=== PATIENT | female | born 1980 | race African-American/Black ===

== ENCOUNTER 2021-01-21 11:00 | Inpatient (IN) | payer OTHER ==
[2021-01-21] MEDS ORDERED: HYDROcodone/Acetaminophen 5/325 mg Tablet ONE (12:38)
[2021-01-21 13:00] LABS: #Eosinphils 0.1 thou/uL (0.0-0.7); #Lymphocytes 1.4 thou/uL (1.20-3.40); #Monocytes 0.3 thou/uL (0.11-0.59); #Neutrophils 3.4 thou/uL (1.40-6.50); %Eosinophils 1.8 % (0.0-10.0); %Lymphocytes 27.3 % (21.0-51.0); %Monocytes 5.7 % (0.0-10.0); %Neutrophils 65.3 % (42.0-75.0); Hemoglobin 12.9 g/dL (12.0-16.0); Mean Corpuscular HGB CONC 33.9 g/dL (32.0-36.0); Mean Corpuscular Hemoglobin 31.3 pg (27.0-31.0); Mean Corpuscular Volume 92.4 fL (78.0-98.0); Mean Platelet Volume 8.1 fL (7.4-10.4); Platelet Count 191 thou/uL (130-400); RBC Distribution Width 12.4 % (11.5-14.5); Red Blood Cell (RBC) Count 4.11 mill/uL (4.20-5.40); White Blood Cell (WBC) Count 5.3 thou/uL (4.8-10.8)
[2021-01-21 13:20] LABS: ALT (SGPT) 12 U/L (8-55); AST (SGOT) 12 U/L (5-34); Albumin 3.5 g/dL (3.5-5.0); Alkaline Phosphatase 54 U/L (40-110); Anion Gap 13 mmol/L (10-20); BUN (Urea Nitrogen) 15 mg/dL (7.0-18.7); Bilirubin, Total 0.3 mg/dL (0.2-1.2); Calc. Creatinine Clearance 0 mL/min (70-130); Calcium 9.2 mg/dL (7.8-10.44); Carbon Dioxide 28 mmol/L (22-29); Chloride 104 mmol/L (98-107); Globulin 2.9 g/dL (2.4-3.5); Glucose 164 mg/dL (70-105); Potassium 3.8 mmol/L (3.5-5.1); Protein, Total 6.4 g/dL (6.0-8.3); Sodium 141 mmol/L (136-145)
[2021-01-21] MEDS ORDERED: Vancomycin 1 GM/200 ML BAG ONE (14:19)
[2021-01-21] MEDS ORDERED: Clindamycin/D5W 600 mg/50 ml Premix Bag ONE (14:19)
[2021-01-21] MEDS ORDERED: Ondansetron ODT 4 MG TAB PO PRN (14:24)
[2021-01-21] MEDS ORDERED: Dextrose 5% in Water 1,000 ML IV PRN (16:16)
[2021-01-21] MEDS ORDERED: HumaLOG 300 UNITS/3 ML VIAL SC PRN ×2 (16:16)
[2021-01-21] MEDS ORDERED: Dextrose 50% Abboject 50 ML SYRINGE SLOW IVP PRN (16:16)
[2021-01-21] MEDS ORDERED: Fish Oil 1,000 MG CAP PO SCH (17:00)
[2021-01-21 17:24] VITALS: BMI 50.1
[2021-01-21] MEDS ORDERED: HumaLOG 300 UNITS/3 ML VIAL ONE (17:32)
[2021-01-21] MEDS ORDERED: Cefepime 2 GM VIAL ONE (17:32)
[2021-01-21] MEDS: Cefepime 2 GM in Sodium Chloride 0.9% 100 ML IVPB SCH (17:44)
[2021-01-21] MEDS: Fish Oil 1,000 MG CAP PO SCH (17:45)
[2021-01-21] MEDS: HumaLOG 300 UNITS/3 ML VIAL SC SCH (17:46)
[2021-01-21] MEDS: metFORMIN 500 MG TAB PO SCH (18:18)
[2021-01-21 18:43] LABS: SARS-CoV-2 NAA Rapid Test Not Detected (NotDetected)
[2021-01-21] MEDS ORDERED: Vancomycin 1 GM in Premix Bag 1 BAG IVPB SCH (21:00)
[2021-01-21] MEDS: Gabapentin 300 MG CAP PO SCH (21:37)
[2021-01-21] MEDS: Atorvastatin Calcium 40 MG TAB PO SCH (21:39)
[2021-01-21] MEDS: Lantus 1000 UNITS/10 ML VIAL SC SCH (21:40)
[2021-01-22] MEDS: Cefepime 2 GM in Sodium Chloride 0.9% 100 ML IVPB SCH ×2 (05:14→15:43)
[2021-01-22 07:25] LABS: #Eosinphils 0.1 thou/uL (0.0-0.7); #Lymphocytes 1.3 thou/uL (1.20-3.40); #Monocytes 0.4 thou/uL (0.11-0.59); #Neutrophils 4.1 thou/uL (1.40-6.50); %Basophils 0.1 % (0.0-1.0); %Eosinophils 2.5 % (0.0-10.0); %Lymphocytes 21.4 % (21.0-51.0); %Monocytes 6.6 % (0.0-10.0); %Neutrophils 69.5 % (42.0-75.0); Hemoglobin 12.5 g/dL (12.0-16.0); Mean Corpuscular HGB CONC 32.6 g/dL (32.0-36.0); Mean Corpuscular Hemoglobin 29.7 pg (27.0-31.0); Mean Platelet Volume 8.5 fL (7.4-10.4); Platelet Count 196 thou/uL (130-400); RBC Distribution Width 12.4 % (11.5-14.5)
[2021-01-22 07:38] LABS: Anion Gap 13 mmol/L (10-20); BUN (Urea Nitrogen) 17 mg/dL (7.0-18.7); Calc. Creatinine Clearance 230 mL/min (70-130); Calcium 9.3 mg/dL (7.8-10.44); Carbon Dioxide 24 mmol/L (22-29); Chloride 106 mmol/L (98-107); Glucose 108 mg/dL (70-105); Potassium 3.4 mmol/L (3.5-5.1); Sodium 140 mmol/L (136-145)
[2021-01-22] MEDS: Gabapentin 300 MG CAP PO SCH ×3 (08:13→20:23)
[2021-01-22] MEDS: Ezetimibe 10 MG TAB PO SCH (08:14)
[2021-01-22] MEDS: Fish Oil 1,000 MG CAP PO SCH ×2 (08:14→17:21)
[2021-01-22] MEDS: metFORMIN 500 MG TAB PO SCH ×2 (08:14→17:21)
[2021-01-22] MEDS ORDERED: Enoxaparin Sodium 40 MG/0.4 ML SYRINGE SC SCH (09:00)
[2021-01-22] MEDS: Lantus 1000 UNITS/10 ML VIAL SC SCH ×2 (09:17→20:25)
[2021-01-22] MEDS ORDERED: Potassium Chloride 20 MEQ TAB PO SCH (10:30)
[2021-01-22] MEDS ORDERED: Carvedilol 25 MG TAB PO SCH (10:30)
[2021-01-22] MEDS: HumaLOG 300 UNITS/3 ML VIAL SC SCH ×2 (11:24→16:26)
[2021-01-22] MEDS: cloNIDine 0.1 MG TAB PO SCH ×3 (11:54→20:23)
[2021-01-22] MEDS: Acetaminophen 325 MG TAB PO PRN (20:24)
[2021-01-22] MEDS: Atorvastatin Calcium 40 MG TAB PO SCH (20:24)
[2021-01-22] MEDS: Carvedilol 25 MG TAB PO SCH (20:24)
[2021-01-22 21:50] LABS: Vancomycin, Trough 39.2 ug/mL
[2021-01-23] MEDS: Cefepime 2 GM in Sodium Chloride 0.9% 100 ML IVPB SCH ×2 (04:05→15:53)
[2021-01-23] MEDS: ENTRESTO PO SCH ×4 (06:14→21:15)
[2021-01-23] MEDS: Fish Oil 1,000 MG CAP PO SCH ×2 (08:39→18:21)
[2021-01-23] MEDS: Acetaminophen 325 MG TAB PO PRN (08:39)
[2021-01-23] MEDS: Furosemide 40 MG TAB PO SCH (08:40)
[2021-01-23] MEDS: Gabapentin 300 MG CAP PO SCH ×4 (08:40→21:04)
[2021-01-23] MEDS: metFORMIN 500 MG TAB PO SCH ×2 (08:40→18:21)
[2021-01-23] MEDS: Lantus 1000 UNITS/10 ML VIAL SC SCH ×2 (08:41→21:00)
[2021-01-23] MEDS: cloNIDine 0.1 MG TAB PO SCH ×3 (08:41→21:03)
[2021-01-23] MEDS: Ezetimibe 10 MG TAB PO SCH (08:41)
[2021-01-23] MEDS: Carvedilol 25 MG TAB PO SCH ×2 (08:41→21:04)
[2021-01-23] MEDS ORDERED: hydrALAZINE 10 MG TAB PO SCH (09:00)
[2021-01-23 09:57] LABS: #Eosinphils 0.1 thou/uL (0.0-0.7); #Lymphocytes 1.4 thou/uL (1.20-3.40); #Monocytes 0.3 thou/uL (0.11-0.59); %Basophils 0.4 % (0.0-1.0); %Eosinophils 2.5 % (0.0-10.0); %Monocytes 6.6 % (0.0-10.0); %Neutrophils 61.5 % (42.0-75.0); Hemoglobin 13.5 g/dL (12.0-16.0); Mean Corpuscular HGB CONC 31.2 g/dL (32.0-36.0); Mean Corpuscular Hemoglobin 28.3 pg (27.0-31.0); Mean Corpuscular Volume 90.4 fL (78.0-98.0); Mean Platelet Volume 8.3 fL (7.4-10.4); Platelet Count 191 thou/uL (130-400); RBC Distribution Width 12.4 % (11.5-14.5); Red Blood Cell (RBC) Count 4.79 mill/uL (4.20-5.40); White Blood Cell (WBC) Count 4.8 thou/uL (4.8-10.8)
[2021-01-23 10:12] LABS: Anion Gap 12 mmol/L (10-20); BUN (Urea Nitrogen) 14 mg/dL (7.0-18.7); Calc. Creatinine Clearance 239 mL/min (70-130); Calcium 9.2 mg/dL (7.8-10.44); Carbon Dioxide 23 mmol/L (22-29); Chloride 107 mmol/L (98-107); Glucose 115 mg/dL (70-105); Potassium 3.8 mmol/L (3.5-5.1); Sodium 138 mmol/L (136-145)
[2021-01-23 10:30] LABS: Vancomycin, Random 17.8 ug/mL (See Comment)
[2021-01-23] MEDS: Vancomycin 1 GM in Premix Bag 1 BAG IVPB SCH ×2 (11:49→21:19)
[2021-01-23] MEDS ORDERED: Magnevist 469MG/ML 20 ML VIAL ONE (12:25)
[2021-01-23] MEDS ORDERED: Morphine 4 MG/ML VIAL SLOW IVP SCH (12:30)
[2021-01-23] MEDS: HumaLOG 300 UNITS/3 ML VIAL SC SCH ×2 (12:43→18:12)
[2021-01-23] MEDS ORDERED: Enoxaparin Sodium 40 MG/0.4 ML SYRINGE SC SCH (15:00)
[2021-01-23] MEDS ORDERED: Enoxaparin Sodium 60 MG/0.6 ML SYRINGE SC SCH (15:15)
[2021-01-23] MEDS ORDERED: hydrALAZINE 20 MG/ML VIAL SLOW IVP PRN (17:49)
[2021-01-23] MEDS: hydrALAZINE 10 MG TAB PO SCH (21:02)
[2021-01-23] MEDS: Atorvastatin Calcium 40 MG TAB PO SCH (21:03)
[2021-01-24] MEDS: Cefepime 2 GM in Sodium Chloride 0.9% 100 ML IVPB SCH ×2 (04:23→17:09)
[2021-01-24] MEDS: Vancomycin 1 GM in Premix Bag 1 BAG IVPB SCH ×2 (05:07→13:41)
[2021-01-24 06:36] LABS: #Eosinphils 0.1 thou/uL (0.0-0.7); #Lymphocytes 1.6 thou/uL (1.20-3.40); #Monocytes 0.4 thou/uL (0.11-0.59); #Neutrophils 2.9 thou/uL (1.40-6.50); %Basophils 0.7 % (0.0-1.0); %Eosinophils 1.9 % (0.0-10.0); %Lymphocytes 32.7 % (21.0-51.0); %Neutrophils 57.8 % (42.0-75.0); Hemoglobin 12.1 g/dL (12.0-16.0); Mean Corpuscular HGB CONC 33.6 g/dL (32.0-36.0); Mean Corpuscular Hemoglobin 30.4 pg (27.0-31.0); Mean Corpuscular Volume 90.4 fL (78.0-98.0); Mean Platelet Volume 7.9 fL (7.4-10.4); Platelet Count 182 thou/uL (130-400); RBC Distribution Width 12.4 % (11.5-14.5); Red Blood Cell (RBC) Count 3.97 mill/uL (4.20-5.40)
[2021-01-24 07:03] LABS: Anion Gap 11 mmol/L (10-20); BUN (Urea Nitrogen) 14 mg/dL (7.0-18.7); Calc. Creatinine Clearance 239 mL/min (70-130); Calcium 8.6 mg/dL (7.8-10.44); Carbon Dioxide 23 mmol/L (22-29); Chloride 107 mmol/L (98-107); Glucose 118 mg/dL (70-105); Potassium 3.4 mmol/L (3.5-5.1); Sodium 138 mmol/L (136-145)
[2021-01-24] MEDS ORDERED: Enoxaparin Sodium 40 MG/0.4 ML SYRINGE SC SCH (09:00)
[2021-01-24] MEDS: Gabapentin 300 MG CAP PO SCH ×3 (09:38→20:30)
[2021-01-24] MEDS: Carvedilol 25 MG TAB PO SCH ×2 (09:39→20:30)
[2021-01-24] MEDS: metFORMIN 500 MG TAB PO SCH ×2 (09:39→17:16)
[2021-01-24] MEDS: Ezetimibe 10 MG TAB PO SCH (09:39)
[2021-01-24] MEDS: Enoxaparin Sodium 60 MG/0.6 ML SYRINGE SC SCH (09:40)
[2021-01-24] MEDS: Furosemide 40 MG TAB PO SCH (09:40)
[2021-01-24] MEDS: Fish Oil 1,000 MG CAP PO SCH ×2 (09:40→17:15)
[2021-01-24] MEDS: cloNIDine 0.1 MG TAB PO SCH ×3 (09:40→20:30)
[2021-01-24] MEDS: hydrALAZINE 10 MG TAB PO SCH (09:42)
[2021-01-24] MEDS: ENTRESTO PO SCH ×2 (09:43→20:35)
[2021-01-24] MEDS: Lantus 1000 UNITS/10 ML VIAL SC SCH ×2 (09:46→20:36)
[2021-01-24] MEDS: Potassium Chloride 20 MEQ TAB PO SCH (11:26)
[2021-01-24 12:40] LABS: Vancomycin, Trough 19.9 ug/mL
[2021-01-24] MEDS: HumaLOG 300 UNITS/3 ML VIAL SC SCH ×2 (13:38→17:16)
[2021-01-24] MEDS: Atorvastatin Calcium 40 MG TAB PO SCH (20:29)
[2021-01-24] MEDS ORDERED: hydrALAZINE 25 MG TAB PO SCH (21:00)
[2021-01-25] MEDS: Acetaminophen 325 MG TAB PO PRN (03:47)
[2021-01-25] MEDS ORDERED: Ketorolac Tromethamine 30 MG/ML VIAL IVP SCH (05:30)
[2021-01-25] MEDS ORDERED: hydrALAZINE 25 MG TAB PO SCH ×3 (06:15→21:00)
[2021-01-25] MEDS ORDERED: Acetaminophen 325 MG TAB PO SCH (06:15)
[2021-01-25 06:38] LABS: #Eosinphils 0.1 thou/uL (0.0-0.7); #Lymphocytes 1.9 thou/uL (1.20-3.40); #Monocytes 0.3 thou/uL (0.11-0.59); #Neutrophils 2.7 thou/uL (1.40-6.50); %Basophils 0.7 % (0.0-1.0); %Eosinophils 1.7 % (0.0-10.0); %Monocytes 6.1 % (0.0-10.0); %Neutrophils 53.4 % (42.0-75.0); Hemoglobin 11.9 g/dL (12.0-16.0); Mean Corpuscular HGB CONC 31.9 g/dL (32.0-36.0); Mean Corpuscular Hemoglobin 28.9 pg (27.0-31.0); Mean Corpuscular Volume 90.5 fL (78.0-98.0); Mean Platelet Volume 8.3 fL (7.4-10.4); Platelet Count 193 thou/uL (130-400); RBC Distribution Width 12.4 % (11.5-14.5); Red Blood Cell (RBC) Count 4.11 mill/uL (4.20-5.40); White Blood Cell (WBC) Count 5.1 thou/uL (4.8-10.8)
[2021-01-25 07:03] LABS: Anion Gap 12 mmol/L (10-20); BUN (Urea Nitrogen) 13 mg/dL (7.0-18.7); Calc. Creatinine Clearance 236 mL/min (70-130); Calcium 9.2 mg/dL (7.8-10.44); Carbon Dioxide 24 mmol/L (22-29); Chloride 107 mmol/L (98-107); Glucose 153 mg/dL (70-105); Potassium 3.7 mmol/L (3.5-5.1); Sodium 139 mmol/L (136-145)
[2021-01-25] MEDS: Acetaminophen 500 MG TAB PO SCH ×3 (07:31→18:06)
[2021-01-25] MEDS: Gabapentin 300 MG CAP PO SCH ×3 (07:43→21:00)
[2021-01-25] MEDS: Fish Oil 1,000 MG CAP PO SCH ×2 (07:44→16:04)
[2021-01-25] MEDS: Enoxaparin Sodium 60 MG/0.6 ML SYRINGE SC SCH (07:44)
[2021-01-25] MEDS: metFORMIN 500 MG TAB PO SCH ×2 (07:44→16:04)
[2021-01-25] MEDS: Furosemide 40 MG TAB PO SCH (07:44)
[2021-01-25] MEDS: Carvedilol 25 MG TAB PO SCH (07:45)
[2021-01-25] MEDS: Amoxicillin/Potassium Clav 875 MG TAB PO SCH ×2 (07:45→21:00)
[2021-01-25] MEDS: Ezetimibe 10 MG TAB PO SCH (07:46)
[2021-01-25] MEDS: cloNIDine 0.1 MG TAB PO SCH ×3 (07:46→21:00)
[2021-01-25] MEDS: ENTRESTO PO SCH ×2 (07:47→21:02)
[2021-01-25] MEDS: Lantus 1000 UNITS/10 ML VIAL SC SCH ×2 (07:56→21:25)
[2021-01-25] MEDS: Potassium Chloride 20 MEQ TAB PO SCH (09:33)
[2021-01-25] MEDS: HumaLOG 300 UNITS/3 ML VIAL SC SCH ×2 (11:10→16:05)
[2021-01-25] MEDS: Atorvastatin Calcium 40 MG TAB PO SCH (21:00)
[2021-01-25] MEDS: hydrALAZINE 25 MG TAB PO SCH (21:01)
[2021-01-26] MEDS: Carvedilol 25 MG TAB PO SCH ×2 (01:22→08:51)
[2021-01-26] MEDS: Acetaminophen 500 MG TAB PO SCH ×3 (01:26→12:01)
[2021-01-26 08:10] LABS: #Eosinphils 0.1 thou/uL (0.0-0.7); #Lymphocytes 1.7 thou/uL (1.20-3.40); #Monocytes 0.3 thou/uL (0.11-0.59); #Neutrophils 2.6 thou/uL (1.40-6.50); %Basophils 0.3 % (0.0-1.0); %Eosinophils 2.1 % (0.0-10.0); %Monocytes 6.3 % (0.0-10.0); %Neutrophils 55.2 % (42.0-75.0); Hemoglobin 12.3 g/dL (12.0-16.0); Mean Corpuscular HGB CONC 31.3 g/dL (32.0-36.0); Mean Corpuscular Hemoglobin 28.5 pg (27.0-31.0); Mean Platelet Volume 8.4 fL (7.4-10.4); Platelet Count 212 thou/uL (130-400); RBC Distribution Width 12.6 % (11.5-14.5); Red Blood Cell (RBC) Count 4.29 mill/uL (4.20-5.40); White Blood Cell (WBC) Count 4.8 thou/uL (4.8-10.8)
[2021-01-26 08:28] LABS: Anion Gap 13 mmol/L (10-20); BUN (Urea Nitrogen) 15 mg/dL (7.0-18.7); Calc. Creatinine Clearance 227 mL/min (70-130); Calcium 9.2 mg/dL (7.8-10.44); Carbon Dioxide 23 mmol/L (22-29); Chloride 107 mmol/L (98-107); Glucose 138 mg/dL (70-105); Potassium 3.9 mmol/L (3.5-5.1); Sodium 139 mmol/L (136-145)
[2021-01-26] MEDS: Enoxaparin Sodium 60 MG/0.6 ML SYRINGE SC SCH (08:50)
[2021-01-26] MEDS: Gabapentin 300 MG CAP PO SCH (08:50)
[2021-01-26] MEDS: Fish Oil 1,000 MG CAP PO SCH (08:50)
[2021-01-26] MEDS: hydrALAZINE 25 MG TAB PO SCH (08:51)
[2021-01-26] MEDS: Furosemide 40 MG TAB PO SCH (08:51)
[2021-01-26] MEDS: metFORMIN 500 MG TAB PO SCH (08:51)
[2021-01-26] MEDS: Amoxicillin/Potassium Clav 875 MG TAB PO SCH (08:51)
[2021-01-26] MEDS: cloNIDine 0.1 MG TAB PO SCH (08:52)
[2021-01-26] MEDS: Ezetimibe 10 MG TAB PO SCH (08:53)
[2021-01-26] MEDS: Lantus 1000 UNITS/10 ML VIAL SC SCH (08:56)
[2021-01-26] MEDS: ENTRESTO PO SCH (08:59)
[2021-01-26] MEDS: Potassium Chloride 20 MEQ TAB PO SCH (10:03)
[2021-01-26 11:59] VITALS: BP 159/87; TEMP 98.2
[2021-01-26] MEDS: HumaLOG 300 UNITS/3 ML VIAL SC SCH (12:03)
== END 2021-01-26 13:52 | disposition home or self-care (01) | DRG 565 ==
LOC: ERS 11:00 → ERHOLD 13:50 → T4-B 18:04
PROVIDERS: ADMIT Family Medicine; ATTEND Family Medicine
DX: T87.43 Infection of amputation stump, right lower extremity (principal); I50.22 Chronic systolic (congestive) heart failure; Z68.43 Body mass index [BMI] 50.0-59.9, adult; M86.171 Other acute osteomyelitis, right ankle and foot; E11.69 Type 2 diabetes mellitus with other specified complication; E11.621 Type 2 diabetes mellitus with foot ulcer; Z20.822 Contact with and (suspected) exposure to COVID-19; I25.10 Atherosclerotic heart disease of native coronary artery without angina pectoris; L97.519 Non-pressure chronic ulcer of other part of right foot with unspecified severity; E78.5 Hyperlipidemia, unspecified; J45.909 Unspecified asthma, uncomplicated; E78.00 Pure hypercholesterolemia, unspecified; I11.0 Hypertensive heart disease with heart failure; G47.33 Obstructive sleep apnea (adult) (pediatric); Y83.8 Other surgical procedures as the cause of abnormal reaction of the patient, or of later complication, without mention of misadventure at the time of the procedure; E66.01 Morbid (severe) obesity due to excess calories; E88.81 Metabolic syndrome and other insulin resistance; I25.5 Ischemic cardiomyopathy; Z95.1 Presence of aortocoronary bypass graft; Z88.1 Allergy status to other antibiotic agents; Z79.84 Long term (current) use of oral hypoglycemic drugs; Z79.899 Other long term (current) drug therapy; Z79.01 Long term (current) use of anticoagulants; Z79.82 Long term (current) use of aspirin; Z79.4 Long term (current) use of insulin; Z99.89 Dependence on other enabling machines and devices
CPT/HCPCS: 36415; 36416; 80048; 80053; 80202; 85025; 85652; 86140; 87070; 87077; 87186; 87205; 93880; 96365; 96375; A9579; J0360; J0692; J1650; J1815; J1885; J2270; J3370; J3490; J7030; U0002

== ENCOUNTER 2021-08-18 22:35 | Observation (INO) | payer SELFPAY ==
[2021-08-18] MEDS ORDERED: Ondansetron PF 4 MG/2 ML Vial ONE (23:03)
[2021-08-18] MEDS ORDERED: cloNIDine 0.1 MG TAB ONE (23:03)
[2021-08-18] MEDS ORDERED: Morphine 4 MG/ML VIAL ONE (23:03)
[2021-08-18 23:39] LABS: #Eosinphils 0.1 thou/uL (0.0-0.7); #Monocytes 0.6 thou/uL (0.11-0.59); %Basophils 0.2 % (0.0-1.0); %Eosinophils 1.1 % (0.0-10.0); %Lymphocytes 26.4 % (21.0-51.0); %Monocytes 7.4 % (0.0-10.0); %Neutrophils 64.9 % (42.0-75.0); Hemoglobin 12.8 g/dL (12.0-16.0); Mean Corpuscular HGB CONC 31.9 g/dL (32.0-36.0); Mean Corpuscular Volume 93.9 fL (78.0-98.0); Mean Platelet Volume 8.8 fL (7.4-10.4); Platelet Count 157 thou/uL (130-400); Red Blood Cell (RBC) Count 4.26 mill/uL (4.20-5.40); White Blood Cell (WBC) Count 7.7 thou/uL (4.8-10.8)
[2021-08-18 23:49] LABS: BHCG - Serum Negative (NEGATIVE); Pregs Control Background? CLEAR/WHITE (CLR/WHITE); Pregs Control Bar Appear? YES (CONTROL BAR)
[2021-08-18 23:59] LABS: ALT (SGPT) 12 U/L (8-55); AST (SGOT) 11 U/L (5-34); Albumin 3.7 g/dL (3.5-5.0); Alkaline Phosphatase 47 U/L (40-110); Anion Gap 15 mmol/L (10-20); BUN (Urea Nitrogen) 13 mg/dL (7.0-18.7); Bilirubin, Total 0.3 mg/dL (0.2-1.2); Calc. Creatinine Clearance 0 mL/min (70-130); Calcium 9.3 mg/dL (7.8-10.44); Carbon Dioxide 23 mmol/L (22-29); Chloride 106 mmol/L (98-107); Estimated GFR 67; Globulin 3.2 g/dL (2.4-3.5); Glucose 311 mg/dL (70-105); Potassium 3.9 mmol/L (3.5-5.1); Protein, Total 6.9 g/dL (6.0-8.3); Sodium 140 mmol/L (136-145)
[2021-08-19] MEDS ORDERED: Morphine 4 MG/ML VIAL ONE (00:07)
[2021-08-19] MEDS ORDERED: Aspirin Chewable 81 MG TAB ONE (00:11)
[2021-08-19] MEDS ORDERED: hydrALAZINE 20 MG/ML VIAL ONE (01:15)
[2021-08-19] MEDS ORDERED: HumaLOG 300 UNITS/3 ML VIAL SC PRN (02:42)
[2021-08-19] MEDS ORDERED: Dextrose 5% in Water 1,000 ML IV PRN (02:42)
[2021-08-19] MEDS ORDERED: Dextrose 50% Abboject 50 ML SYRINGE SLOW IVP PRN (02:42)
[2021-08-19] MEDS ORDERED: Acetaminophen 500 MG TAB PO SCH (03:30)
[2021-08-19] MEDS ORDERED: Ibuprofen 600 MG TAB PO SCH (03:30)
[2021-08-19 03:54] LABS: Magnesium 2.1 mg/dL (1.6-2.6); Phosphorus 3.6 mg/dL (2.3-4.7)
[2021-08-19] MEDS ORDERED: Acetaminophen 500 MG TAB ONE (04:05)
[2021-08-19 04:35] LABS: SARS-CoV-2 NAA Rapid Test Not Detected (NotDetected)
[2021-08-19 06:43] LABS: Troponin I 0.044 ng/mL (< 0.028)
[2021-08-19] MEDS ORDERED: Enoxaparin Sodium 40 MG/0.4 ML SYRINGE SC SCH (09:00)
[2021-08-19] MEDS: Polyethylene Glycol 3350 17 GM Packet PO SCH (09:21)
[2021-08-19] MEDS: Aspirin Chewable 81 MG TAB PO SCH (09:22)
[2021-08-19] MEDS: hydrALAZINE 25 MG TAB PO SCH ×3 (09:22→21:16)
[2021-08-19] MEDS: NIFEdipine XL 30 MG TAB PO SCH ×2 (09:22→12:06)
[2021-08-19] MEDS: Carvedilol 25 MG TAB PO SCH ×2 (09:23→21:17)
[2021-08-19] MEDS: cloNIDine 0.1 MG TAB PO SCH ×3 (09:23→21:17)
[2021-08-19] MEDS: metFORMIN 500 MG TAB PO SCH ×2 (09:23→18:06)
[2021-08-19] MEDS: Ezetimibe 10 MG TAB PO SCH (09:23)
[2021-08-19] MEDS: Furosemide 40 MG TAB PO SCH (09:23)
[2021-08-19] MEDS: Enoxaparin Sodium 40 MG/0.4 ML SYRINGE SC SCH ×2 (09:24→21:15)
[2021-08-19] MEDS: Lidocaine 5% Patch TD SCH (09:24)
[2021-08-19] MEDS: Gabapentin 300 MG CAP PO SCH ×3 (09:24→21:16)
[2021-08-19] MEDS ORDERED: hydrALAZINE 20 MG/ML VIAL SLOW IVP PRN (09:37)
[2021-08-19] MEDS: Insulin Glargine 30 UNITS/0.3 ML VIAL SC SCH ×2 (09:49→21:17)
[2021-08-19] MEDS: Icosapent Ethyl 1 GM CAPSULE PO SCH ×2 (09:58→18:06)
[2021-08-19] MEDS: Alogliptin 25 MG TAB PO SCH (09:58)
[2021-08-19] MEDS: Empagliflozin 25 MG TAB PO SCH (10:01)
[2021-08-19 10:10] VITALS: BMI 48.3
[2021-08-19] MEDS ORDERED: Magnevist 469MG/ML 20 ML VIAL ONE (11:23)
[2021-08-19] MEDS ORDERED: Escitalopram Oxalate 10 mg Tablet PO SCH (12:15)
[2021-08-19] MEDS: Ibuprofen 600 MG TAB PO SCH ×2 (12:27→18:07)
[2021-08-19] MEDS: Acetaminophen 500 MG TAB PO SCH ×2 (14:15→21:23)
[2021-08-19] MEDS: HumaLOG 300 UNITS/3 ML VIAL SC PRN (18:07)
[2021-08-19] MEDS ORDERED: Calcium Chloride 1 GM/10 ML Abboject SYRINGE ONE (18:32)
[2021-08-19] MEDS ORDERED: Atorvastatin Calcium 40 MG TAB PO SCH (21:00)
[2021-08-19] MEDS ORDERED: Transdermal Patch Removal TOP SCH (21:00)
[2021-08-19] MEDS ORDERED: NIFEdipine XL 30 MG TAB PO SCH (21:00)
[2021-08-20] MEDS: Ibuprofen 600 MG TAB PO SCH ×3 (00:05→11:42)
[2021-08-20 05:42] LABS: Anion Gap 15 mmol/L (10-20); BUN (Urea Nitrogen) 19 mg/dL (7.0-18.7); Calc. Creatinine Clearance 184 mL/min (70-130); Calcium 8.6 mg/dL (7.8-10.44); Carbon Dioxide 22 mmol/L (22-29); Chloride 107 mmol/L (98-107); Estimated GFR 75; Glucose 141 mg/dL (70-105); Potassium 3.9 mmol/L (3.5-5.1); Sodium 140 mmol/L (136-145)
[2021-08-20] MEDS: Acetaminophen 500 MG TAB PO SCH ×2 (06:20→15:58)
[2021-08-20] MEDS ORDERED: Escitalopram Oxalate 10 mg Tablet PO SCH (09:00)
[2021-08-20] MEDS: Polyethylene Glycol 3350 17 GM Packet PO SCH (09:06)
[2021-08-20] MEDS: Icosapent Ethyl 1 GM CAPSULE PO SCH (09:07)
[2021-08-20] MEDS: Lidocaine 5% Patch TD SCH (09:08)
[2021-08-20] MEDS: metFORMIN 500 MG TAB PO SCH (09:16)
[2021-08-20] MEDS: Empagliflozin 25 MG TAB PO SCH (09:16)
[2021-08-20] MEDS: Aspirin Chewable 81 MG TAB PO SCH (09:17)
[2021-08-20] MEDS: Alogliptin 25 MG TAB PO SCH (09:17)
[2021-08-20] MEDS: hydrALAZINE 25 MG TAB PO SCH ×2 (09:17→15:57)
[2021-08-20] MEDS: cloNIDine 0.1 MG TAB PO SCH ×2 (09:17→15:57)
[2021-08-20] MEDS: Carvedilol 25 MG TAB PO SCH (09:18)
[2021-08-20] MEDS: Furosemide 40 MG TAB PO SCH (09:18)
[2021-08-20] MEDS: Ezetimibe 10 MG TAB PO SCH (09:18)
[2021-08-20] MEDS: Gabapentin 300 MG CAP PO SCH ×2 (09:18→15:57)
[2021-08-20] MEDS: Insulin Glargine 30 UNITS/0.3 ML VIAL SC SCH (09:19)
[2021-08-20] MEDS: Enoxaparin Sodium 40 MG/0.4 ML SYRINGE SC SCH (09:21)
[2021-08-20] MEDS: HumaLOG 300 UNITS/3 ML VIAL SC PRN (11:42)
[2021-08-20 15:13] VITALS: BP 171/77; TEMP 97.9
== END 2021-08-20 16:07 | disposition home or self-care (01) ==
LOC: ERS 22:35 → 2SW 08-19 01:36 → ERHOLD 08-19 01:38 → 2SW 08-19 07:47
PROVIDERS: ADMIT Family Medicine; ATTEND Family Medicine
DX: I16.0 Hypertensive urgency (principal); G93.89 Other specified disorders of brain; R55 Syncope and collapse; M54.50 Low back pain, unspecified; M25.512 Pain in left shoulder; I11.0 Hypertensive heart disease with heart failure; I50.20 Unspecified systolic (congestive) heart failure; I25.10 Atherosclerotic heart disease of native coronary artery without angina pectoris; Z20.822 Contact with and (suspected) exposure to COVID-19; E11.9 Type 2 diabetes mellitus without complications; E78.5 Hyperlipidemia, unspecified; Z79.4 Long term (current) use of insulin; Z79.82 Long term (current) use of aspirin; Z79.84 Long term (current) use of oral hypoglycemic drugs; Z79.899 Other long term (current) drug therapy; Z88.1 Allergy status to other antibiotic agents; Z87.891 Personal history of nicotine dependence; Z95.1 Presence of aortocoronary bypass graft
CPT/HCPCS: 36415; 36416; 70450; 70553; 72131; 80048; 80053; 82553; 83735; 84100; 84484; 84703; 85025; 93005; 93306; 93880; 96372; 96374; 96375; 96376; A9579; G0378; J0360; J1650; J1815; J2270; J2405; U0002